=== PATIENT | female | born 1950 | race American Indian/Alaskan Native ===

== ENCOUNTER 2020-12-14 16:53 | Emergency (ER) | payer MEDICARE, OTHER ==
[~2020-12-14] VITALS: Ht 160 cm; Wt 84.1 kg
[~2020-12-14 16:53] MED LIST: ENOX40SY7 SQ; ESCI-8 PO
[2020-12-14 16:57] VITALS: BP 171/63
== END 2020-12-14 18:27 | disposition home or self-care (01) ==
LOC: ER 16:54
DX: S20.219A Contusion of unspecified front wall of thorax, initial encounter (principal); I10 Essential (primary) hypertension; E11.9 Type 2 diabetes mellitus without complications; Z98.51 Tubal ligation status; Z98.84 Bariatric surgery status; Z90.89 Acquired absence of other organs; Z88.8 Allergy status to other drugs, medicaments and biological substances; Z79.899 Other long term (current) drug therapy; W10.8XXA Fall (on) (from) other stairs and steps, initial encounter; Y93.89 Activity, other specified; Y92.89 Other specified places as the place of occurrence of the external cause; Y99.8 Other external cause status
CPT/HCPCS: 71045; 99284

== ENCOUNTER 2023-02-10 12:31 | Inpatient (IN) | payer MEDICARE, OTHER ==
[~2023-02-10] VITALS: Ht 157.5 cm; Wt 89.1 kg
[2023-02-10 13:48] LABS: BASOPHILS # (AUTO) 0.1 X10'3 (0-0.2); BASOPHILS % (AUTO) 1.2 % (0-1); EOSINOPHILS # (AUTO) 0.2 X10'3 (0-0.9); EOSINOPHILS % (AUTO) 2.2 % (0-6); HEMATOCRIT 46.8 % (35.0-45.0); HEMOGLOBIN 15.4 g/dl (12.0-16.0); LYMPHOCYTES # (AUTO) 1.3 X10'3 (1.1-4.8); LYMPHOCYTES % (AUTO) 16.2 % (21-51); MEAN CORPUSCULAR HEMOGLOBIN 33.1 PG (27.0-31.0); MEAN CORPUSCULAR HGB CONC 32.8 g/dL (33.0-36.5); MEAN CORPUSCULAR VOLUME 100.9 FL (78-98); MEAN PLATELET VOLUME 8.3 FL (7.4-10.4); MONOCYTES # (AUTO) 0.5 X10'3 (0-0.9); MONOCYTES % (AUTO) 6.5 % (2-12); NEUTROPHILS # (AUTO) 6.1 X10'3 (1.8-7.7); NEUTROPHILS % (AUTO) 73.9 % (42-75); PLATELET COUNT 387 X10'3 (140-440); RED BLOOD COUNT 4.64 X10'6 (4.20-5.60); RED CELL DISTRIBUTION WIDTH 13.8 % (11.5-14.5); WHITE BLOOD COUNT 8.2 X10'3 (4.5-11.0)
[2023-02-10 14:03] LABS: ALANINE AMINOTRANSFERASE 35 U/L (12-78); ALBUMIN 3.9 G/DL (3.4-5.0); ALBUMIN/GLOBULIN RATIO 1.2 (1.1-1.5); ALKALINE PHOSPHATASE 84 IU/L (46-116); ANION GAP 8 (8-16); ASPARTATE AMINO TRANSFERASE 39 U/L (10-37); BILIRUBIN,TOTAL 0.4 MG/DL (0.1-1.0); BLOOD UREA NITROGEN 9 MG/DL (7-18); BUN/CREATININE RATIO 11.3 (10.0-20.0); CALCIUM 8.8 MG/DL (8.5-10.1); CHLORIDE 106 MMOL/L (99-107); GLUCOSE 97 MG/DL (70-104); POTASSIUM 3.6 MMOL/L (3.5-5.1); SODIUM 145 MMOL/L (135-145); TOTAL PROTEIN 7.1 G/DL (6.4-8.2); eCRCL 52 ML/MIN; eGFR 71 ML/MIN
[2023-02-10 14:08] LABS: LIPASE 32 U/L (16-77)
[2023-02-10] MEDS ORDERED: ondansetron/PF 4mg/2ml inj IV ONE (15:35)
[2023-02-10] MEDS ORDERED: hydrALAZINE 20mg/ml inj. IV ONE (15:35)
[2023-02-10] MEDS ORDERED: pantoprazole 40mg IV 80 MG in normal saline 100ml IV soln 100 ML IV ONE (15:35)
[2023-02-10] MEDS ORDERED: iohexol 300mg/ml 100ml inj. ONE ×2 (15:44→16:27)
[2023-02-10] MEDS ORDERED: pantoprazole 40 MG vial IV ONE (15:50)
[2023-02-10] MEDS ORDERED: pantoprazole 40MG/NS 100ML BAG 100 ML IV ONE (16:00)
--- NOTE | 2023-02-10 16:39 | NUR ---
CT CALLED THAT PIV INFILTRATED. AN ICE PACK WAS APPLIED AND A NEW IV WAS PLACED IN THE R FA.
[2023-02-10] MEDS ORDERED: LORazepam 2 mg/ml vial IV ONE (17:50)
--- NOTE | 2023-02-10 18:47 | NUR ---
Patient resting in bed with no distress noted at this time. Denies nausea. Discussed intent for admission per Dr. Camara, patient verbalized understanding. Educated patient on NPO status, verbalized understanding. Denies questions or concerns at this time, call light within reach.
[2023-02-10] MEDS ORDERED: ondansetron/PF 4mg/2ml inj IV PRN (19:25)
[2023-02-10] MEDS ORDERED: acetaminophen 650mg rectal suppository RC PRN (19:25)
[2023-02-10] MEDS ORDERED: morphine 2 MG/ML inj. syringe IV PRN (19:25)
[2023-02-10] MEDS ORDERED: ondansetron 4mg rapidly disintigrating tab PO PRN (19:25)
[2023-02-10] MEDS ORDERED: mag hydrox/Alum hydrox/simeth 30ml oral suspension PO PRN (19:25)
[2023-02-10] MEDS ORDERED: bisacodyl 10mg suppository rectal RC PRN (19:25)
[2023-02-10] MEDS ORDERED: diphenhydrAMINE 50 mg/ml inj IV PRN (19:25)
[2023-02-10] MEDS ORDERED: HYDROcodone/acetaminophen 5mg/325mg tablet PO PRN (19:25)
[2023-02-10] MEDS ORDERED: diphenhydrAMINE 25mg capsule PO PRN (19:25)
[2023-02-10] MEDS ORDERED: acetaminophen 325mg tablet PO PRN ×2 (19:25)
[2023-02-10] MEDS ORDERED: magnesium hydroxide 30ml (MOM) UD suspension PO PRN (19:25)
[2023-02-10] MEDS ORDERED: insulin Lispro (HumaLOG) vial - multi-dose SQ SCH (19:30)
[2023-02-10] MEDS ORDERED: glucagon, human recombinant 1mg kit SUBCUT PRN (19:30)
[2023-02-10] MEDS ORDERED: MESSAGE TO PHARMACY PO ONE (19:30)
[2023-02-10] MEDS ORDERED: DEXTROSE 15 GM of carb/4 tabs (each vial/BOTTLE has 4 tablets) PO PRN ×2 (19:30)
[2023-02-10] MEDS ORDERED: niCARdipine I.V. 50 MG in normal saline 250ml IV soln 230 ML IV SCH (19:30)
[2023-02-10] MEDS ORDERED: dextrose 50%-water 50ml dispensing syringe IV PRN ×2 (19:30)
--- NOTE | 2023-02-10 19:48 | NUR ---
Patient ambulatory to restroom.
[2023-02-10] MEDS: docusate sod 100mg capsule PO SCH (20:00)
[2023-02-10 20:04] LABS: BILIRUBIN,URINE NEGATIVE (Neg); CLARITY,URINE CLEAR (Clear); COLOR,URINE YELLOW (Yellow); GLUCOSE, URINE NEGATIVE (Neg); KETONES,URINE 15 mg/dl (Neg); LEUKOCYTE ESTERASE ,URINE NEGATIVE (Neg); NITRITES, URINE POSITIVE (Neg); OCCULT BLOOD,URINE NEGATIVE (Neg); PH,URINE 8.5 (4.8-8.0); PROTEIN,URINE NEGATIVE (Neg); UROBILINOGEN,URINE 0.2 E.U/dL (0.2-1.0)
[2023-02-10 20:06] LABS: HEMOGLOBIN A1C 5.8 % (4.5-6.2)
[2023-02-10 20:10] LABS: APTT 26 SECONDS (22-32); PROTHROMBIN TIME 11.2 SECONDS (9.0-12.0)
[2023-02-10] MEDS: pantoprazole 40MG/NS 100ML BAG 100 ML IV SCH ×2 (20:11→21:37)
[2023-02-10] MEDS: normal saline 1000ml 1,000 ML IV SCH (20:11)
[2023-02-10 20:12] LABS: UA COLLECTION TYPE CLN CATCH MIDSTREAM
[2023-02-10 20:23] LABS: CREATINE KINASE 56 U/L (26-192); MAGNESIUM 2.2 MG/DL (1.5-2.4); PHOSPHORUS 3.7 MG/DL (2.3-4.5); PRO BRAIN NATRIURETIC PEPTIDE 153 PG/ML (0-125); THYROID STIMULATING HORMONE 4.79 ulU/ml (0.34-4.50)
[2023-02-10 20:39] LABS: AMORPHOUS PHOSPHATES 1+; BACTERIA,URINE 1+ /HPF (Neg); RBC,URINE 0-2 /HPF (0-2); SQUAMOUS EPITHELIAL CELL,UR FEW /LPF (FEW)
[2023-02-10 20:40] LABS: TRIPLE PHOSPHATE CRYST 1+ /HPF (NEGATIVE)
[2023-02-10] MEDS ORDERED: insulin glargine (Lantus) pen - multi-dose SQ SCH (21:00)
[2023-02-10] MEDS ORDERED: temazepam 15mg capsule PO PRN (21:00)
--- NOTE | 2023-02-10 23:36 | NUR ---
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 Denies needs, warm blanket provided. Call light within reach.
[2023-02-11] MEDS: pantoprazole 40MG/NS 100ML BAG 100 ML IV SCH ×5 (00:39→21:35)
[2023-02-11] MEDS ORDERED: niCARDipine-NS 40mg/200ml IVPB 200 ML IV SCH (03:25)
--- NOTE | 2023-02-11 03:28 | NUR ---
Patient resting in bed with eyes closed, respirations even and unlabored, no acute distress noted at this time, call light within reach.
[2023-02-11 03:57] LABS: BASOPHILS # (AUTO) 0.1 X10'3 (0-0.2); BASOPHILS % (AUTO) 0.7 % (0-1); EOSINOPHILS # (AUTO) 0.2 X10'3 (0-0.9); HEMATOCRIT 38.9 % (35.0-45.0); HEMOGLOBIN 13.1 g/dl (12.0-16.0); LYMPHOCYTES # (AUTO) 1.6 X10'3 (1.1-4.8); LYMPHOCYTES % (AUTO) 20.3 % (21-51); MEAN CORPUSCULAR HEMOGLOBIN 33.7 PG (27.0-31.0); MEAN CORPUSCULAR HGB CONC 33.6 g/dL (33.0-36.5); MEAN CORPUSCULAR VOLUME 100.4 FL (78-98); MEAN PLATELET VOLUME 8.1 FL (7.4-10.4); MONOCYTES # (AUTO) 0.8 X10'3 (0-0.9); MONOCYTES % (AUTO) 9.8 % (2-12); NEUTROPHILS # (AUTO) 5.3 X10'3 (1.8-7.7); NEUTROPHILS % (AUTO) 66.2 % (42-75); PLATELET COUNT 318 X10'3 (140-440); RED BLOOD COUNT 3.87 X10'6 (4.20-5.60)
[2023-02-11 04:08] LABS: ALANINE AMINOTRANSFERASE 23 U/L (12-78); ALBUMIN 3.1 G/DL (3.4-5.0); ALBUMIN/GLOBULIN RATIO 1.2 (1.1-1.5); ALKALINE PHOSPHATASE 69 IU/L (46-116); ANION GAP 7 (8-16); ASPARTATE AMINO TRANSFERASE 23 U/L (10-37); BILIRUBIN,TOTAL 0.6 MG/DL (0.1-1.0); BLOOD UREA NITROGEN 10 MG/DL (7-18); BUN/CREATININE RATIO 11.4 (10.0-20.0); CALCIUM 7.9 MG/DL (8.5-10.1); CHLORIDE 105 MMOL/L (99-107); CHOLESTEROL 196 MG/DL (0-200); CREATININE 0.88 MG/DL (0.40-0.90); GLUCOSE 107 MG/DL (70-104); HDL CHOLESTEROL 66 MG/DL (35-60); LDL CHOLESTEROL 116 MG/DL (50-100); POTASSIUM 3.4 MMOL/L (3.5-5.1); SODIUM 141 MMOL/L (135-145); TOTAL CARBON DIOXIDE 29.1 MMOL/L (24-32); TOTAL PROTEIN 5.6 G/DL (6.4-8.2); TRIGLYCERIDES 73 MG/DL (20-135); eCRCL 47 ML/MIN; eGFR 64 ML/MIN
--- NOTE | 2023-02-11 04:24 | NUR ---
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 Medication given per order. Denies further needs at this time, call light within reach.
--- NOTE | 2023-02-11 04:56 | NUR ---
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 EKG order placed.
[2023-02-11] MEDS ORDERED: nitroGLYCERIN 0.4mg SUBLingual tab SL PRN (05:15)
[2023-02-11] MEDS: normal saline 1000ml 1,000 ML IV SCH ×2 (05:31→20:06)
--- NOTE | 2023-02-11 05:36 | NUR ---
Called and spoke to Dr. Knutson re: chest pain, new orders received. Patient updated. Verbalized understanding. Call light within reach.
--- NOTE | 2023-02-11 07:15 | NUR ---
PT UP AND AMBULATED TO BR W/O ASSIST, STEADY GAIT. IV SL REDRESSED W/O PROBLEM AND PT TOLERATED WELL. AT BS.
[2023-02-11 08:20] VITALS: BP 176/85; PULSE 86; RESP 16; TEMP 98.3; O2SAT 96
[2023-02-11 10:30] VITALS: BP 109/60; PULSE 85; RESP 16; TEMP 97.9; O2SAT 99
[2023-02-11] MEDS ORDERED: hydrALAZINE 20mg/ml inj. IV PRN (10:55)
[2023-02-11] MEDS ORDERED: GABA-530 PO (11:14)
[2023-02-11] MEDS ORDERED: ESCI20TA39 PO (11:14)
[2023-02-11] MEDS ORDERED: CHOL500050 PO (11:14)
[2023-02-11] MEDS ORDERED: FERR325T29 PO (11:14)
[2023-02-11] MEDS ORDERED: CYAN-104 PO (11:14)
[2023-02-11] MEDS ORDERED: HYDR-3973 PO (11:14)
[2023-02-11] MEDS ORDERED: LIDO700A47 TOP (11:18)
[2023-02-11] MEDS ORDERED: AMOX500C4 PO (11:18)
[2023-02-11] MEDS ORDERED: LOSA25TA41 PO (11:18)
--- NOTE | 2023-02-11 11:21 | NUR ---
PAGER ID: [phone] MESSAGE: MED REC COMPLETED ON - PT ACTUALLY PRESCRIBED [place] [employer] AND HAD NO IDEA WHAT IT WAS FOR??? EXTENDED EDUCATION GIVEN WITH BOTH PT AND VERBALIZING UNDERSTANDING :)
[2023-02-11] MEDS: diltiazem CD 180mg cap (once-daily) PO SCH (12:24)
--- NOTE | 2023-02-11 14:44 | NUR ---
Nutrition consult: Pt presents with a hx of diabetes though presents with an A1c of 5.8% this admit per EMR. Prior A1c of 5.6% on 09/11 and 6.2% on 11/20/13 per EMR. Diabetes nutrition education not warranted at this time. Addendum: 02/11/23 at [address] Amended: Links added.
[2023-02-11 15:30] VITALS: BP 136/57; PULSE 92; RESP 18; TEMP 97.5; O2SAT 97
[2023-02-11 18:00] VITALS: BP 129/55; PULSE 78; RESP 17; TEMP 98.1; O2SAT 100
--- NOTE | 2023-02-11 18:40 | NUR ---
Patient in room PCU 3018. I have received report from CORINE BUSTILLOS and had the opportunity to ask questions and assume patient care.
[2023-02-11 20:00] VITALS: RESP 17; O2SAT 100
[2023-02-11] MEDS: docusate sod 100mg capsule PO SCH (20:00)
[2023-02-11] MEDS: ciprofloxacin lact 400MG/200ML 200 ML IV SCH (20:05)
[2023-02-11 22:00] VITALS: BP 154/66; PULSE 71; RESP 17; TEMP 97.8; O2SAT 97
[2023-02-12] VITALS (12 sets, daily range): BP systolic 126–167; BP diastolic 47–80; PULSE 62–83; RESP 15–28; TEMP 97.4–98; O2SAT 95–99
[2023-02-12] MEDS: normal saline 1000ml 1,000 ML IV SCH ×2 (01:25→05:46)
[2023-02-12] MEDS: pantoprazole 40MG/NS 100ML BAG 100 ML IV SCH ×4 (01:41→16:00)
--- NOTE | 2023-02-12 06:16 | NUR ---
Problems reprioritized. Patient report given, questions answered & plan of care reviewed with JESUS BUSTILLOS.
[2023-02-12] MEDS: ciprofloxacin lact 400MG/200ML 200 ML IV SCH (07:34)
[2023-02-12] MEDS: diltiazem CD 180mg cap (once-daily) PO SCH (07:35)
[2023-02-12] MEDS: docusate sod 100mg capsule PO SCH ×2 (07:35→07:36)
[2023-02-12 07:52] LABS: BASOPHILS % (AUTO) 0.7 % (0-1); EOSINOPHILS # (AUTO) 0.2 X10'3 (0-0.9); HEMATOCRIT 37.1 % (35.0-45.0); HEMOGLOBIN 12.4 g/dl (12.0-16.0); LYMPHOCYTES # (AUTO) 1.3 X10'3 (1.1-4.8); LYMPHOCYTES % (AUTO) 18.1 % (21-51); MEAN CORPUSCULAR HGB CONC 33.4 g/dL (33.0-36.5); MEAN CORPUSCULAR VOLUME 101.7 FL (78-98); MEAN PLATELET VOLUME 8.7 FL (7.4-10.4); MONOCYTES # (AUTO) 0.6 X10'3 (0-0.9); MONOCYTES % (AUTO) 8.5 % (2-12); NEUTROPHILS % (AUTO) 69.7 % (42-75); PLATELET COUNT 306 X10'3 (140-440); RED BLOOD COUNT 3.65 X10'6 (4.20-5.60); RED CELL DISTRIBUTION WIDTH 13.6 % (11.5-14.5); WHITE BLOOD COUNT 7.2 X10'3 (4.5-11.0)
[2023-02-12 08:18] LABS: ALANINE AMINOTRANSFERASE 21 U/L (12-78); ALBUMIN 2.9 G/DL (3.4-5.0); ALBUMIN/GLOBULIN RATIO 1.2 (1.1-1.5); ALKALINE PHOSPHATASE 61 IU/L (46-116); ANION GAP 8 (8-16); ASPARTATE AMINO TRANSFERASE 21 U/L (10-37); BILIRUBIN,TOTAL 0.6 MG/DL (0.1-1.0); BLOOD UREA NITROGEN 7 MG/DL (7-18); CALCIUM 8.1 MG/DL (8.5-10.1); CHLORIDE 106 MMOL/L (99-107); CREATININE 0.87 MG/DL (0.40-0.90); GLUCOSE 110 MG/DL (70-104); POTASSIUM 3.3 MMOL/L (3.5-5.1); SODIUM 139 MMOL/L (135-145); TOTAL PROTEIN 5.4 G/DL (6.4-8.2); eCRCL 48 ML/MIN; eGFR 64 ML/MIN
[2023-02-12] MEDS ORDERED: FLU VACC QS2023-24(6MOS UP)/PF 60 MCG/0.5 ML SYRINGE IMVAC ONE (10:20)
[2023-02-12] MEDS ORDERED: potassium Cl 40MEQ/1/2NS 520ml 520 ML IV PRN (10:35)
[2023-02-12] MEDS ORDERED: magnesium 2GM in 50ml NS 50 ML IV PRN (10:35)
[2023-02-12] MEDS ORDERED: magnesium Cl slow-release 64mg tablet PO PRN (10:35)
[2023-02-12] MEDS ORDERED: potassium Cl 20 mEq SR tablet PO PRN ×2 (10:35)
[2023-02-12] MEDS ORDERED: magnesium 4gm in 100ml NS 100 ML IV PRN (10:35)
[2023-02-12 10:49] LABS: MAGNESIUM 2.1 MG/DL (1.5-2.4)
--- NOTE | 2023-02-12 14:30 | NUR ---
patient off floor to GI lab
[2023-02-12] MEDS ORDERED: LIDOcaine Viscous 15ml cup ONE (15:38)
[2023-02-12] MEDS ORDERED: fentaNYL/PF 50MCG/1 ML 2ML syringe ONE (16:12)
[2023-02-12] MEDS ORDERED: diphenhydrAMINE 50 mg/ml inj ONE (16:12)
[2023-02-12] MEDS ORDERED: MIDAZolam 1 MG/ML 5ML VIAL ONE (16:12)
--- NOTE | 2023-02-12 17:11 | NUR ---
pt back from GI lab. No active bleed Dr. Camacho notified.
[2023-02-12] MEDS ORDERED: CIPR-202 PO (17:34)
[2023-02-12] MEDS ORDERED: PANT-47 PO (17:34)
[2023-02-12] MEDS ORDERED: DILT180C66 PO (17:48)
--- NOTE | 2023-02-12 18:18 | NUR ---
Problems reprioritized. Patient report given, questions answered & plan of care reviewed with Prudence RN. Patient is ready to go home .
--- NOTE | 2023-02-12 18:30 | NUR ---
PATIENT DISCHARGED HOME WITH HER IN STABLE CONDITION. BELONGINGS AND DISCHARGE INSTRUCTIONS GIVEN AND PATIENT EDUCATED TO CALL THE EMERGENCY ROOM IF ANY CHANGE IN CONDITION. VS WITHIN NORMAL LIMITS BP 160/68, HR 63, T 97.9, RR 20 AND O2 99 0N RA.
== END 2023-02-12 18:30 | disposition home or self-care (01) | DRG 378 ==
LOC: ER 12:32 → ED HOLD 19:27 → PCU 3S 02-11 08:20 → SUR 3N 02-12 12:33 → PCU 3S 02-12 12:34
PROVIDERS: ADMIT Family Medicine; ATTEND Internal Medicine
PROC: 0DJ08ZZ Inspection of Upper Intestinal Tract, Via Natural or Artificial Opening Endoscopic (ICD-10-PCS; principal; 2023-02-12)
DX: K92.2 Gastrointestinal hemorrhage, unspecified (principal); I16.1 Hypertensive emergency; N39.0 Urinary tract infection, site not specified; K92.0 Hematemesis; Z68.35 Body mass index [BMI] 35.0-35.9, adult; E87.6 Hypokalemia; E66.01 Morbid (severe) obesity due to excess calories; E11.65 Type 2 diabetes mellitus with hyperglycemia; G89.4 Chronic pain syndrome; I10 Essential (primary) hypertension; E78.5 Hyperlipidemia, unspecified; K21.9 Gastro-esophageal reflux disease without esophagitis; K44.9 Diaphragmatic hernia without obstruction or gangrene; K80.20 Calculus of gallbladder without cholecystitis without obstruction; E83.51 Hypocalcemia; R51.9 Headache, unspecified; F32.A Depression, unspecified; Z98.84 Bariatric surgery status
CPT/HCPCS: 36415; 43239; 70450; 74178; 80053; 80061; 81001; 82550; 82948; 83036; 83690; 83735; 83880; 84100; 84443; 84484; 85025; 85610; 85730; 87077; 87081; 87088; 87186; 99152; 99285; A4620; C9113; G0378; J0360; J0744; J1200; J1815; J2060; J2250; J2405; J3010; J3490; J7030; Q9967